=== PATIENT | female | born 1945 | race Caucasian/White ===

== ENCOUNTER 2017-05-10 12:57 | Outpatient (CLI) | payer MEDICARE ==
--- NOTE | 2017-05-10 14:06 | RAD ---
TWO VIEWS OF THE LEFT WRIST: Comparison: 04-26-17 History: Fracture of the left wrist post-surgery. FINDINGS: Two views of the left wrist shows a plate and screws along the distal radius without perihardware haydee ency. There is an associated ulnar styloid process fracture. Overlying splint obscures bony and soft tissue detail. IMPRESSION: Status post ORIF of the distal radius without evidence of complication. POS: [facility]
== END 2017-05-10 12:58 | disposition home or self-care (01) ==
LOC: NAV RAD 12:57
PROVIDERS: ATTEND Orthopaedic Surgery
DX: S52.532D Colles' fracture of left radius, subsequent encounter for closed fracture with routine healing (principal); Z98.890 Other specified postprocedural states

== ENCOUNTER 2017-06-14 12:51 | Outpatient (CLI) | payer MEDICARE, OTHER ==
--- NOTE | 2017-06-14 13:20 | RAD ---
LEFT WRIST 3 VIEWS: HISTORY: Postop followup internal fixation of left wrist. COMPARISON: Comparison is made to films of 04/20/17. FINDINGS: Plate and screws now transfix the distal radius. The hardware and fragments appear in adequate posit ion. Ununited ulnar styloid again noted. No other significant change. POS: [facility]
== END 2017-06-14 12:52 | disposition home or self-care (01) ==
LOC: NAV RAD 12:51
PROVIDERS: ATTEND Orthopaedic Surgery
DX: S62.102A Fracture of unspecified carpal bone, left wrist, initial encounter for closed fracture (principal)